=== PATIENT | female | born 1945 | race Caucasian/White ===

== ENCOUNTER 2024-03-21 19:49 | Inpatient (IN) | payer MEDICAID ==
[~2024-03-21] VITALS: Ht 165.1 cm; Wt 77.6 kg
[2024-03-21 20:15] LABS: *BILIRUBIN,URIN NEGATIVE (NEGATIVE); *BLOOD, URINE 2+ (NEGATIVE); *CLARITY,URINE CLEAR (CLEAR); *COLOR,URINE YELLOW (YELLOW); *KETONES,URINE NEGATIVE (NEGATIVE); *PROTEIN,URINE 3+ (NEGATIVE); *UROBILINOGEN,URINE 0.2 E.U./dl (NORMAL); LEUKOCYTE ESTERASE ,URINE 2+ (NEGATIVE); NITRITE, URINE NEGATIVE (NEGATIVE); PH,URINE 7.5 (5.0-8.0); UGLUCOSE NEGATIVE (NEGATIVE)
[2024-03-21 20:22] LABS: BASOPHILS # (AUTO) 0.1 K/UL (0.0-0.2); BASOPHILS % (AUTO) 0.8 % (0.0-2.0); EOSINOPHILS # (AUTO) 0.1 K/uL (0.0-0.7); EOSINOPHILS % (AUTO) 0.7 % (0.0-7.0); HEMATOCRIT 29.1 % (31.2-41.9); HEMOGLOBIN 9.7 g/dL (10.9-14.3); LYMPHOCYTES # (AUTO) 1.3 K/uL (0.8-4.8); MEAN CORPUSCULAR HEMOGLOBIN 23.2 uug (24.7-32.8); MEAN CORPUSCULAR HGB CONC 33 g/dL (32.3-35.6); MEAN CORPUSCULAR VOLUME 69.9 fL (75.5-95.3); MONOCYTES # (AUTO) 1.3 K/uL (0.1-1.30); MONOCYTES % (AUTO) 10.2 % (0.0-11.0); NEUTROPHILS # (AUTO) 10.2 K/uL (1.8-8.9); NEUTROPHILS % (AUTO) 78.3 % (38.5-71.5); PLATELET COUNT (AUTO) 466 K/uL (179-408); RED BLOOD CELL COUNT(AUTO) 4.17 MIL/uL (3.63-4.92); RED CELL DISTRIBUTION WIDTH 15.6 % (12.3-17.7); WHITE BLOOD COUNT (AUTO) 13.1 K/uL (3.8-11.8)
[2024-03-21] MEDS ORDERED: POLY250017 PO (20:22)
[2024-03-21] MEDS ORDERED: SENN8.6T19 PO (20:22)
[2024-03-21] MEDS ORDERED: norco PO (20:22)
[2024-03-21] MEDS ORDERED: METO-356 PO (20:22)
[2024-03-21] MEDS ORDERED: PANT40TA49 PO (20:22)
[2024-03-21 20:30] LABS: DIFFERENTIAL COMMENT 1
[2024-03-21 20:32] LABS: CALCIUM 8.8 mg/dL (8.5-10.1); CARBON DIOXIDE 27 mmol/L (21-32); CHLORIDE 103 mmol/L (98-107); CREATININE 1.9 mg/dL (0.6-1.3); GLUCOSE 110 mg/dL (74-106); POTASSIUM 4.8 mmol/L (3.5-5.1); SODIUM SERUM 137 mmol/L (136-145); UREA NITROGEN, BLOOD 32 mg/dL (7-18)
[2024-03-21 20:47] LABS: ALANINE AMINOTRANSFERASE 23 U/L (14-59); ALKALINE PHOSPHATASE 114 U/L (50-136); ASPARTATE AMINOTRANSFERASE 39 U/L (15-37); BILIRUBIN,DIRECT < 0.1 mg/dL (0.0-0.2); BILIRUBIN,TOTAL 0.3 mg/dL (0.2-1.0); LIPASE 77 U/L (16-77); TOTAL PROTEIN, SERUM 6.9 g/dL (6.4-8.2)
[2024-03-21] MEDS: MORPHINE SULFATE 2 MG/1 ML DISP.SYRIN IV ONE ×3 (21:00→23:45)
[2024-03-21] MEDS: ONDANSETRON 4 MG/2 ML VIAL IV ONE (21:00)
[2024-03-21] MEDS ORDERED: MORPHINE SULFATE 2 MG/1 ML DISP.SYRIN ONE ×2 (22:05→23:44)
[2024-03-21] MEDS ORDERED: LIDOCAINE HCL 2% 20 ML VIAL ONE (22:06)
[2024-03-21] MEDS: MORPHINE SULFATE 4 MG/1 ML DISP.SYRIN IV ONE (23:00)
[2024-03-21] MEDS ORDERED: CEFTRIAXONE 1 G VIAL ONE (23:08)
[2024-03-21] MEDS ORDERED: METRONIDAZOLE 500 MG/NS 100ML 100 ML IV ONE (23:09)
[2024-03-21] MEDS: METRONIDAZOLE 500 MG/NS 100 ML PIGGYBACK IV ONE (23:20)
[2024-03-21] MEDS: CEFTRIAXONE 2 G in IV DEXTROSE 5% 100 ML IV ONE (23:20)
[2024-03-21] MEDS ORDERED: EPINEPHRINE-PF 1:1000 1 MG/ML AMPUL/VIAL ONE (23:25)
[2024-03-21 23:33] LABS: TOTAL VOLUME,BODY FLUID 20 mL; WBC, BODY FLUID 2506 /cu. mm (0-200/cu.mm)
[2024-03-21] MEDS ORDERED: diphenhydrAMINE 50 MG/1 ML VIAL ONE (23:33)
[2024-03-21] MEDS: diphenhydrAMINE 50 MG/1 ML VIAL IV ONE (23:35)
[2024-03-21] MEDS: IV NORMAL SALINE 1000 ML BAG IV ONE (23:45)
[2024-03-21] MEDS: methylPREDNISolone SOD SUCC 125 MG/2 ML VIAL IV ONE (23:45)
[2024-03-22 00:19] LABS: MONOCYTES,BODY FLUID 6 %; POLYNUCLEAR, BODY FLUID 3 % (0-25 %)
[2024-03-22] MEDS ORDERED: REMEDY ESSENTIAL ZINC PASTE 113 GM TP PRN (00:30)
[2024-03-22] MEDS ORDERED: ACETAMINOPHEN 325 MG TABLET PO PRN (00:30)
[2024-03-22] MEDS ORDERED: methylPREDNISolone SOD SUCC 125 MG/2 ML VIAL ONE (00:42)
[2024-03-22] MEDS: IV NORMAL SALINE 1000 ML BAG IV ONE ×2 (00:46→02:31)
[2024-03-22] MEDS: MORPHINE SULFATE 2 MG/1 ML DISP.SYRIN IV ONE ×2 (00:47→01:47)
[2024-03-22] MEDS ORDERED: FAMOTIDINE. 20 MG/2 ML VIAL IV ONE ×2 (01:12→09:00)
[2024-03-22] MEDS ORDERED: AZTREONAM 1 G VIAL ONE (01:13)
[2024-03-22] MEDS ORDERED: VANCOMYCIN IV 200 ML ONE (01:15)
[2024-03-22] MEDS ORDERED: METRONIDAZOLE 500 MG/NS 100ML 0 ML IV ONE (01:15)
[2024-03-22] MEDS: FAMOTIDINE. 20 MG/2 ML VIAL IV SCH (01:24)
[2024-03-22] MEDS: VANCOMYCIN IV 1,000 MG in IV DEXTROSE 5% 250 ML IV ONE (01:38)
[2024-03-22] MEDS: METRONIDAZOLE 500 MG/NS 100ML 100 ML IV ONE (01:47)
[2024-03-22 01:52] LABS: LACTIC ACID 3.7 mmol/L (0.4-2.0)
[2024-03-22] MEDS ORDERED: VANCOMYCIN IV 1,000 MG in IV NORMAL SALINE 250 ML IV ONE (02:00)
[2024-03-22] MEDS: AZTREONAM 1 G in IV NORMAL SALINE 50 ML IV ONE (03:29)
[2024-03-22] MEDS ORDERED: LIDOCAINE 5% PATCH TD ONE (03:30)
[2024-03-22] MEDS: LIDOCAINE 5% PATCH TD SCH (03:30)
[2024-03-22] MEDS ORDERED: ONDANSETRON 4 MG/2 ML VIAL ONE (05:38)
[2024-03-22] MEDS: ONDANSETRON 4 MG/2 ML VIAL IV PRN (05:40)
[2024-03-22] MEDS ORDERED: EPINEPHRINE 1:10,000 1 MG/10 ML DISP.SYRIN ONE (06:00)
[2024-03-22 08:39] LABS: IRON, SERUM 11 ug/dL (50-175)
[2024-03-22 08:52] LABS: ALANINE AMINOTRANSFERASE 21 U/L (14-59); ALBUMIN 1.7 g/dL (3.4-5.0); ALKALINE PHOSPHATASE 98 U/L (50-136); ASPARTATE AMINOTRANSFERASE 39 U/L (15-37); BILIRUBIN,TOTAL 0.2 mg/dL (0.2-1.0); CALCIUM 8.2 mg/dL (8.5-10.1); CARBON DIOXIDE 21 mmol/L (21-32); CHLORIDE 105 mmol/L (98-107); GLUCOSE 150 mg/dL (74-106); LIPASE 62 U/L (16-77); MAGNESIUM 2.2 mg/dL (1.8-2.4); POTASSIUM 3.8 mmol/L (3.5-5.1); SODIUM SERUM 140 mmol/L (136-145); TOTAL PROTEIN, SERUM 5.9 g/dL (6.4-8.2); UREA NITROGEN, BLOOD 29 mg/dL (7-18)
[2024-03-22] MEDS ORDERED: HEPARIN SODIUM,PORCINE 5,000 UNITS/ML VIAL ONE (08:59)
[2024-03-22] MEDS ORDERED: MIRALAX 17 GM POWD.PACK ONE (08:59)
[2024-03-22] MEDS: MIRALAX 17 GM POWD.PACK PO SCH (09:00)
[2024-03-22] MEDS ORDERED: CIPROFLOXACIN IV 400 MG in PREMIXED 1 EACH IV SCH (09:00)
[2024-03-22] MEDS: HEPARIN SODIUM,PORCINE 5,000 UNITS/ML VIAL SQ SCH (09:08)
[2024-03-22 09:39] LABS: THYROID STIMULATING HORMONE 9.873 mIU/mL (0.358-3.740)
[2024-03-22 10:34] LABS: FERRITIN 1338 ng/mL (8-252)
[2024-03-22] MEDS ORDERED: HYDR-4384 PO (10:37)
[2024-03-22] MEDS ORDERED: VANCOMYCIN IV 1,000 MG in IV DEXTROSE 5% 250 ML IV ONE (11:00)
[2024-03-22] MEDS: CIPROFLOXACIN IV 400 MG in PREMIXED 1 EACH IV SCH (11:16)
[2024-03-22] MEDS ORDERED: CIPROFLOXACIN IV 200 ML IV ONE (11:16)
[2024-03-22] MEDS: VANCOMYCIN HCL 750 MG in IV DEXTROSE 5% 250 ML IV ONE (11:38)
[2024-03-22 12:00] VITALS: BP 123/65; TEMP 98.3; O2SAT 98
[2024-03-22 14:17] LABS: BASOPHILS % (AUTO) 0.2 % (0.0-2.0); HEMATOCRIT 25.4 % (31.2-41.9); HEMOGLOBIN 8.3 g/dL (10.9-14.3); LYMPHOCYTES # (AUTO) 0.2 K/uL (0.8-4.8); LYMPHOCYTES % (AUTO) 1.8 % (20.5-51.5); MEAN CORPUSCULAR HEMOGLOBIN 23.1 uug (24.7-32.8); MEAN CORPUSCULAR HGB CONC 33 g/dL (32.3-35.6); MEAN CORPUSCULAR VOLUME 70.4 fL (75.5-95.3); MONOCYTES # (AUTO) 0.6 K/uL (0.1-1.30); MONOCYTES % (AUTO) 4.3 % (0.0-11.0); NEUTROPHILS % (AUTO) 93.7 % (38.5-71.5); PLATELET COUNT (AUTO) 346 K/uL (179-408); RED BLOOD CELL COUNT(AUTO) 3.61 MIL/uL (3.63-4.92); RED CELL DISTRIBUTION WIDTH 15.4 % (12.3-17.7); WHITE BLOOD COUNT (AUTO) 12.8 K/uL (3.8-11.8)
[2024-03-22 14:28] LABS: DIFFERENTIAL COMMENT 1
[2024-03-22 16:00] VITALS: BP 115/65; TEMP 97.2; O2SAT 96
[2024-03-22] MEDS: IV NS 1000 ML 1,000 ML IV PRN (16:24)
[2024-03-22 19:47] VITALS: BP 113/67; TEMP 97.6; O2SAT 95
[2024-03-23 00:15] VITALS: BP 127/66; TEMP 97.5; O2SAT 95
[2024-03-23 04:50] VITALS: BP 124/65; TEMP 98; O2SAT 96
[2024-03-23 06:23] LABS: BASOPHILS # (AUTO) 0.1 K/UL (0.0-0.2); BASOPHILS % (AUTO) 0.3 % (0.0-2.0); EOSINOPHILS % (AUTO) 0.1 % (0.0-7.0); HEMATOCRIT 25.6 % (31.2-41.9); HEMOGLOBIN 8.4 g/dL (10.9-14.3); LYMPHOCYTES # (AUTO) 0.5 K/uL (0.8-4.8); MEAN CORPUSCULAR HEMOGLOBIN 23.2 uug (24.7-32.8); MEAN CORPUSCULAR HGB CONC 33 g/dL (32.3-35.6); MEAN CORPUSCULAR VOLUME 70.6 fL (75.5-95.3); MONOCYTES # (AUTO) 1.5 K/uL (0.1-1.30); MONOCYTES % (AUTO) 8.5 % (0.0-11.0); NEUTROPHILS # (AUTO) 15.2 K/uL (1.8-8.9); NEUTROPHILS % (AUTO) 88.1 % (38.5-71.5); PLATELET COUNT (AUTO) 375 K/uL (179-408); RED BLOOD CELL COUNT(AUTO) 3.63 MIL/uL (3.63-4.92); RED CELL DISTRIBUTION WIDTH 15.5 % (12.3-17.7); WHITE BLOOD COUNT (AUTO) 17.3 K/uL (3.8-11.8)
[2024-03-23] MEDS: HYDROCODONE/APAP 5-325MG TABLET PO PRN (06:31)
[2024-03-23 06:51] LABS: CALCIUM 8.5 mg/dL (8.5-10.1); CARBON DIOXIDE 24 mmol/L (21-32); CHLORIDE 107 mmol/L (98-107); CREATININE 1.8 mg/dL (0.6-1.3); GLUCOSE 122 mg/dL (74-106); MAGNESIUM 2.1 mg/dL (1.8-2.4); PHOSPHOROUS 3.8 mg/dL (2.5-4.9); SODIUM SERUM 139 mmol/L (136-145); UREA NITROGEN, BLOOD 32 mg/dL (7-18)
[2024-03-23 07:10] LABS: DIFFERENTIAL COMMENT 1
[2024-03-23 07:44] VITALS: BP 120/67; TEMP 98.2; O2SAT 97
[2024-03-23] MEDS: LIDOCAINE 5% PATCH TD SCH (08:48)
[2024-03-23 10:29] LABS: HYPOCHROMASIA 1+; LYMPHOCYTES % (MANUAL) 7 % (20-40); MONOCYTES % (MANUAL) 10 % (2-10); NEUTROPHILS % (MANUAL) 83 % (42-75); PLATELET ESTIMATE ADEQUATE
[2024-03-23 10:30] LABS: ANISOCYTOSIS 1+
[2024-03-23 11:07] VITALS: BP 136/73; TEMP 98.4; O2SAT 96
[2024-03-23] MEDS: VANCOMYCIN IV 1,000 MG in IV DEXTROSE 5% 250 ML IV ONE (14:09)
[2024-03-23 15:13] VITALS: BP 134/70; TEMP 98.8; O2SAT 96
[2024-03-23 19:00] VITALS: BP 146/74; TEMP 98; O2SAT 97
[2024-03-23] MEDS: MORPHINE SULFATE 2 MG/1 ML DISP.SYRIN IV PRN (19:38)
[2024-03-24] VITALS: BP 139/69; TEMP 97.8; O2SAT 95
[2024-03-24 07:46] VITALS: BP 149/81; TEMP 98.5
[2024-03-25] MEDS ORDERED: FAMOTIDINE 20 MG TABLET PO SCH (09:00)
== END 2024-03-24 11:15 | disposition home health service (06) | DRG 811 ==
LOC: ER 20:45 → TRANSITION 03-22 00:12 → TELE3 03-22 11:50 → MEDSURG3 03-24 10:00
PROVIDERS: ADMIT Nurse Practitioner Family; ATTEND Nurse Practitioner Family
PROC: 0W9G3ZX Drainage of Peritoneal Cavity, Percutaneous Approach, Diagnostic (ICD-10-PCS; principal; 2024-03-22)
PROC: 5A12012 Performance of Cardiac Output, Single, Manual (ICD-10-PCS; 2024-03-22)
DX: T88.6XXA Anaphylactic reaction due to adverse effect of correct drug or medicament properly administered, initial encounter (principal); R09.2 Respiratory arrest; N17.8 Other acute kidney failure; E87.20 Acidosis, unspecified; J90 Pleural effusion, not elsewhere classified; R18.8 Other ascites; C78.6 Secondary malignant neoplasm of retroperitoneum and peritoneum; T36.1X5A Adverse effect of cephalosporins and other beta-lactam antibiotics, initial encounter; C56.2 Malignant neoplasm of left ovary; D72.829 Elevated white blood cell count, unspecified; Y92.538 Other ambulatory health services establishments as the place of occurrence of the external cause; K74.60 Unspecified cirrhosis of liver; Z93.6 Other artificial openings of urinary tract status; D50.9 Iron deficiency anemia, unspecified; N13.9 Obstructive and reflux uropathy, unspecified; I12.9 Hypertensive chronic kidney disease with stage 1 through stage 4 chronic kidney disease, or unspecified chronic kidney disease; N18.9 Chronic kidney disease, unspecified; J98.11 Atelectasis; R07.89 Other chest pain; Y84.8 Other medical procedures as the cause of abnormal reaction of the patient, or of later complication, without mention of misadventure at the time of the procedure; Y71.8 Miscellaneous cardiovascular devices associated with adverse incidents, not elsewhere classified
CPT/HCPCS: 36415; 71045; 71250; 76705; 76770; 83550; 83605; 83690; 83735; 83986; 84100; 84443; 84484; 85025; 87040; 87086; 93005; 93307; A4606; A4663; A6209; G0378; J0171; J0696; J0744; J1200; J1644; J2270; J2405; J2919; J3370; J3490; J7040; J7050